=== PATIENT | male | born 1965 | race African-American/Black ===

== ENCOUNTER 2020-06-16 06:30 | Inpatient (IN) ==
[2020-06-16] MEDS ORDERED: ASPIRIN 325 MG TABLET PO STA (06:50)
[2020-06-16 07:37] LABS: Basophils # 0.1 10*3/uL (0.0-0.2); Basophils % 1.2 % (0.0-0.8); Eosinophils # 0.4 10*3/uL (0.0-0.87); Eosinophils % 8.3 % (0.00-10.9); Hematocrit 44.6 VOL% (42.0-52.0); Hemoglobin 15.1 GM/DL (14.0-18.0); Immature Granulocytes % 0.2 %; Immature Granulocytes Absolute 0.01 #; Lymphocytes # 2.3 10*3/uL (1.4-4.0); Lymphocytes % 53.9 % (21.2-54.2); Mean Corpuscular HGB Conc 33.9 GM/DL (32-36); Mean Platelet Volume 10.9 FL (9.6-12.0); Monocytes % 12.3 % (1.7-12.7); Neutrophils % 24.1 % (38.7-73.9); Platelet Count 151 T/CUMM (130-400); Red Blood Count 5.01 MC/CUMM (3.8-5.5); White Blood Count 4.2 T/CUMM (4-12)
[2020-06-16 07:48] LABS: PT Patient Result 10.9 SECS (9.8-11.9); Partial Thromboplastin Time 26.6 SECS (23.9-33.8)
[2020-06-16 07:54] LABS: Risk Ratio 2.11; VLDL CHOLESTEROL 14.6 MG/DL
[2020-06-16 07:58] LABS: Band Neutrophils 1 % (0-10); Eosinophils 6 % (0-10); Lymphocytes 53 % (20-55); Segmented Neutrophils 25 % (50-85); Total Cells Counted 100
[2020-06-16 07:59] LABS: Anisocytosis Slight; Macrocytosis Slight; Platelet Estimate Normal
[2020-06-16 08:24] LABS: Alanine Aminotransferase 32 U/L (16-61); Albumin 3.8 G/DL (3.4-5.0); Alkaline Phosphatase 63 U/L (45-117); Aspartate Amino Transferase 28 U/L (0-37); Blood Urea Nitrogen 18 MG/DL (7-18); Calcium 8.7 MG/DL (8.5-10.1); Estimated Glom Filtration Rate 109 ML/MIN; Glucose 91 MG/DL (74-106); Osmolality,Calculated 278.5 MOS/KG (273-304); Total Protein 7.1 G/DL (6.4-8.3)
[2020-06-16] MEDS ORDERED: DEXAMETHASONE 10 MG/1 ML VIAL IV STA (09:31)
[2020-06-16 10:04] LABS: Bilirubin,Urine Negative (Negative); Blood, Urine Negative (Negative); Glucose,Urine (UA) Negative (Negative); Ketones,Urine Negative (Negative); Nitrite,Urine Negative (Negative); Protein,Urine Negative; RBC,Urine 3 /HPF (0-4); Urine Appearance CLEAR (Clear); Urine Color Yellow (Yellow); Urine Specific Gravity 1.046 (1.001-1.035); Urine Urobilinogen < 2.0 EU/DL (0.2-1.0)
[2020-06-16 11:26] LABS: Barbiturates Screen,Urine Negative (Negative); Benzodiazepines Screen,Urine Negative (Negative); Cannabinoid Screen,Urine Negative (Negative); Opiate Screen,Urine Negative (Negative); Phencyclidine Screen,Urine Negative (Negative)
[2020-06-16] MEDS ORDERED: ACETAMINOPHEN 325 MG TABLET PO PRN (16:39)
[2020-06-16] MEDS ORDERED: ONDANSETRON 4 MG/2 ML VIAL IV PRN (16:39)
[2020-06-16] MEDS ORDERED: ZALEPLON 5 MG CAPSULE PO PRN (17:52)
[2020-06-16] MEDS ORDERED: MAGNESIUM HYDROXIDE SUSP 30 ML UDCUP PO PRN (18:10)
[2020-06-16] MEDS: DEXAMETHASONE 4 MG/1 ML VIAL IV SCH (18:20)
[2020-06-16] MEDS: DEXTROSE 5% NACL 0.45% 1,000 ML IV SCH (18:20)
[2020-06-16] MEDS: DOCUSATE SODIUM 100 MG CAPSULE PO SCH (20:31)
[2020-06-17] MEDS: DEXAMETHASONE 4 MG/1 ML VIAL IV SCH ×2 (00:04→06:03)
[2020-06-17] MEDS: DEXTROSE 5% NACL 0.45% 1,000 ML IV SCH (04:04)
[2020-06-17 04:39] VITALS: BP 106/71
[2020-06-17 05:50] LABS: Hematocrit 44.8 VOL% (42.0-52.0); Hemoglobin 14.7 GM/DL (14.0-18.0); Immature Granulocytes % 0.4 %; Immature Granulocytes Absolute 0.03 #; Lymphocytes # 1.3 10*3/uL (1.4-4.0); Lymphocytes % 17.2 % (21.2-54.2); Mean Corpuscular HGB Conc 32.8 GM/DL (32-36); Mean Corpuscular Volume 91.1 FL (87-102); Mean Platelet Volume 11.4 FL (9.6-12.0); Monocytes % 3.7 % (1.7-12.7); Neutrophils % 78.7 % (38.7-73.9); Platelet Count 162 T/CUMM (130-400); Red Blood Count 4.92 MC/CUMM (3.8-5.5); Red Cell Distribution Width 12.5 % (9.3-17.3); White Blood Count 7.3 T/CUMM (4-12)
[2020-06-17 06:12] LABS: Albumin 3.7 G/DL (3.4-5.0); Bilirubin,Total 0.6 MG/DL (0.2-1.0); Calcium 8.7 MG/DL (8.5-10.1); Osmolality,Calculated 271.2 MOS/KG (273-304); Total Protein 7.1 G/DL (6.4-8.3)
[2020-06-17] MEDS ORDERED: PANTOPRAZOLE 40 MG TABLET PO SCH (09:00)
[2020-06-17] MEDS ORDERED: DEXAMETHASONE 10 MG/1 ML VIAL IV SCH (09:00)
[2020-06-17] MEDS: DOCUSATE SODIUM 100 MG CAPSULE PO SCH (09:16)
[2020-06-17 10:31] LABS: Protein C Activity Plasma 94 % (70 - 150)
[2020-06-17] MEDS ORDERED: DEXAMETHASONE 4 MG TABLET PO SCH (21:00)
[2020-06-18 10:41] LABS: Protein S Activity Plasma 84 % (65 - 160)
[2020-06-22 22:41] LABS: FACV Specimen Whole Blood
== END 2020-06-17 10:47 | disposition home or self-care (01) | DRG 54 ==
LOC: N.ED 06:30 → N.EDINP 09:44 → N.TELES 16:40
PROVIDERS: ADMIT Family Medicine; ATTEND Family Medicine